=== PATIENT | male | born 1970 | race Caucasian/White ===

== ENCOUNTER 2020-01-11 22:02 | Emergency (ER) | payer SELFPAY ==
--- NOTE | 2020-01-11 22:42 | CT ---
CT head noncontrast HISTORY: Fall. Head injury. FINDINGS: There is no evidence of acute intracranial hemorrhage or infarct. The ventricles appear nor mal in size, shape and position. There is no mass effect or shift of midline structures. Mild mucosal thickening within the left maxillary sinus. Large area of scalp injury over the left frontal calvarium. IMPRESSION : No acute intracranial abnormalities are demonstrated. Large frontal scalp wound.
--- NOTE | 2020-01-11 22:44 | CT ---
CT cervical spine noncontrast HISTORY: Fall. Injury. FINDINGS: Vertebral body heights are maintained. Multilevel osteophytosis and disc space narrowing. M inimal degenerative retrolisthesis at the C5-6 level. Cervicothoracic junction is intact. No acute fracture or dislocation. IMPRESSION : Osseous degenerative changes. No acute osseous abnormalities are demonstrated.
[2020-01-12] MEDS ORDERED: Lidocaine 1% (PF) 30 ML VIAL ONE (00:17)
[2020-01-12] MEDS ORDERED: Lidocaine 1% w/Epinephrine 1:100K 20 ML VIAL ONE (00:19)
== END 2020-01-12 01:54 | disposition home or self-care (01) ==
LOC: ERS 22:02
DX: S01.81XA Laceration without foreign body of other part of head, initial encounter (principal); S01.01XA Laceration without foreign body of scalp, initial encounter; F17.210 Nicotine dependence, cigarettes, uncomplicated; W01.198A Fall on same level from slipping, tripping and stumbling with subsequent striking against other object, initial encounter
CPT/HCPCS: 12042; 70450; 72125; J2001; L0120

== ENCOUNTER 2021-04-20 15:38 | Outpatient (CLI) | payer OTHER | END 2021-04-20 15:39 | disposition home or self-care (01) | LOC: BICCT 15:38 | PROVIDERS: ATTEND Family Medicine | DX: I10 Essential (primary) hypertension (principal); E78.00 Pure hypercholesterolemia, unspecified; F17.200 Nicotine dependence, unspecified, uncomplicated; I25.10 Atherosclerotic heart disease of native coronary artery without angina pectoris | CPT/HCPCS: 75571 ==